=== PATIENT | male | born 1970 | race Caucasian/White ===

== ENCOUNTER 2024-05-20 15:27 | Inpatient (IN) | payer OTHER ==
[~2024-05-20] VITALS: Ht 180.3 cm; Wt 88.1 kg
[2024-05-20 15:54] VITALS: BP 145/79; PULSE 113; RESP 19; TEMP 99.5; O2SAT 96
[2024-05-20] MEDS: NACL 0.9% 1,000 ML IV ONE (16:30)
[2024-05-20 16:47] LABS: BASOPHILS # (AUTO) 0.1 K/uL (0.00-0.22); BASOPHILS % (AUTO) 0.6 % (0.0-2.0); EOSINOPHILS # (AUTO) 0.1 K/uL (0-0.4); EOSINOPHILS % (AUTO) 0.8 % (0.0-4.0); HEMATOCRIT 43.6 % (36-52); HEMOGLOBIN 14.8 g/dL (12.0-18.0); LYMPHOCYTES # (AUTO) 1.2 K/uL (2.0-11.5); LYMPHOCYTES % (AUTO) 7.1 % (20.5-51.1); MEAN CORPUSCULAR HEMOGLOBIN 30 pg (27-31); MEAN CORPUSCULAR HGB CONC 34 g/dL (33-37); MEAN CORPUSCULAR VOLUME 88.2 fL (80-94); MONOCYTES # (AUTO) 1.4 K/uL (0.8-1.0); MONOCYTES % (AUTO) 8.2 % (1.7-9.3); NEUTROPHILS # (AUTO) 14.6 K/uL (1.8-7.7); NEUTROPHILS % (AUTO) 83.3 % (42.2-75.2); PLATELET COUNT (AUTO) 345 K/uL (140-450); RED BLOOD CELL COUNT(AUTO) 4.95 MIL/uL (4.20-6.10); RED CELL DISTRIBUTION WIDTH 13.7 % (11.6-13.7); WHITE BLOOD COUNT (AUTO) 17.5 K/uL (4.8-10.8)
[2024-05-20] MEDS ORDERED: PIPERACILLIN/TAZOBACTAM 3.375 GM VIAL IV ONE (16:50)
[2024-05-20 16:53] LABS: ANION GAP 10.9 (8-16); CALCIUM 9.4 mg/dL (8.5-10.1); CARBON DIOXIDE 29.8 mmol/L (21-32); CREATININE 1.4 mg/dL (0.6-1.3); POTASSIUM 3.7 mmol/L (3.5-5.1)
[2024-05-20] MEDS: MORPHINE SULFATE 4 MG/ML SYR IVP ONE (16:54)
[2024-05-20] MEDS: PIPERACILLIN/TAZOBACTAM 3.375 GM in DEXT 5% MINI-BAG PLUS 50 ML IV ONE (17:00)
[2024-05-20 17:01] LABS: LACTIC ACID 0.9 mmol/L (0.4-2.0)
[2024-05-20] MEDS ORDERED: ASPI-1856 PO (17:04)
[2024-05-20] MEDS ORDERED: CEPH500C16 PO (17:04)
[2024-05-20] MEDS ORDERED: GABA-636 PO (17:04)
[2024-05-20] MEDS ORDERED: SEMA0.258 SUBQ (17:04)
[2024-05-20] MEDS ORDERED: ATOR20TA40 PO (17:04)
[2024-05-20] MEDS ORDERED: CHOL200072 PO (17:04)
[2024-05-20] MEDS ORDERED: LOSA100T52 PO (17:04)
[2024-05-20] MEDS ORDERED: MAG SULF 2000 MG/WATER PREMIX 50 ML IV PRN (18:40)
[2024-05-20] MEDS ORDERED: KCL 20 MEQ IN 100 mL PREMIX 200 ML IV PRN (18:40)
[2024-05-20] MEDS ORDERED: POTASSIUM CHLORIDE 10 MEQ TABER PO PRN (18:40)
[2024-05-20] MEDS ORDERED: VANCOMYCIN PER PHARMACY MC PRN (18:40)
[2024-05-20] MEDS ORDERED: INSULIN LISPRO SLIDING SCALE 100 UNITS/ML VIAL SUBQ PRN (18:45)
[2024-05-20] MEDS: VANCOMYCIN 1,000 MG in NACL 0.9% 250 ML IV SCH (20:15)
[2024-05-20] MEDS: MORPHINE SULFATE 4 MG/ML SYR IVP PRN (20:33)
[2024-05-20 20:50] VITALS: BP 130/87; PULSE 104; RESP 16; TEMP 98.9; O2SAT 100; O2SAT 96
[2024-05-20] MEDS: BLOOD GLUCOSE MONITORING 1 DEV DEV FS SCH (21:00)
[2024-05-21 04:00] VITALS: BP 122/76; PULSE 99; RESP 16; TEMP 98.9; O2SAT 100
[2024-05-21 05:34] LABS: BASOPHILS # (AUTO) 0.1 K/uL (0.00-0.22); BASOPHILS % (AUTO) 0.5 % (0.0-2.0); EOSINOPHILS # (AUTO) 0.3 K/uL (0-0.4); EOSINOPHILS % (AUTO) 2.6 % (0.0-4.0); HEMATOCRIT 38.9 % (36-52); HEMOGLOBIN 13.1 g/dL (12.0-18.0); LYMPHOCYTES # (AUTO) 1.7 K/uL (2.0-11.5); LYMPHOCYTES % (AUTO) 12.6 % (20.5-51.1); MEAN CORPUSCULAR HEMOGLOBIN 30 pg (27-31); MEAN CORPUSCULAR HGB CONC 34 g/dL (33-37); MEAN CORPUSCULAR VOLUME 88.3 fL (80-94); MONOCYTES # (AUTO) 1.4 K/uL (0.8-1.0); MONOCYTES % (AUTO) 10.2 % (1.7-9.3); NEUTROPHILS # (AUTO) 9.9 K/uL (1.8-7.7); NEUTROPHILS % (AUTO) 74.1 % (42.2-75.2); PLATELET COUNT (AUTO) 276 K/uL (140-450); RED BLOOD CELL COUNT(AUTO) 4.41 MIL/uL (4.20-6.10); WHITE BLOOD COUNT (AUTO) 13.3 K/uL (4.8-10.8)
[2024-05-21 06:10] LABS: ALBUMIN 2.2 g/dL (3.4-5.0); CALCIUM 8.5 mg/dL (8.5-10.1); CARBON DIOXIDE 25.8 mmol/L (21-32); CREATININE 1.2 mg/dL (0.6-1.3); MAGNESIUM 1.8 mg/dL (1.8-2.4); POTASSIUM 3.8 mmol/L (3.5-5.1); TOTAL BILIRUBIN 0.6 mg/dL (0.0-1.0); TOTAL PROTEIN, SERUM 6.3 g/dL (6.4-8.2)
[2024-05-21 08:00] VITALS: BP 116/73; PULSE 92; RESP 19; TEMP 97.2; O2SAT 97
[2024-05-21] MEDS: DOCUSATE SODIUM 100 MG GELCAP PO SCH (09:34)
[2024-05-21] MEDS: VANCOMYCIN 1,000 MG in NACL 0.9% 250 ML IV SCH (09:35)
[2024-05-21] MEDS: BLOOD GLUCOSE MONITORING 1 DEV DEV FS SCH (12:15)
[2024-05-21] MEDS ORDERED: GAUZE TP PRN (15:35)
[2024-05-21 16:00] VITALS: BP 146/71; PULSE 72; RESP 18; TEMP 99.2; O2SAT 98
[2024-05-21] MEDS: INSULIN LISPRO SLIDING SCALE 100 UNITS/ML VIAL SUBQ PRN (17:03)
[2024-05-21] MEDS: HYDROcodone/APAP 5/325 MG 1 TAB TAB PO PRN (17:17)
[2024-05-21 20:00] VITALS: BP 118/75; PULSE 94; RESP 18; TEMP 97.4; O2SAT 95
[2024-05-22 04:00] VITALS: BP 145/86; PULSE 96; RESP 18; TEMP 98.4; O2SAT 96
[2024-05-22 05:00] LABS: BASOPHILS # (AUTO) 0.1 K/uL (0.00-0.22); BASOPHILS % (AUTO) 0.5 % (0.0-2.0); EOSINOPHILS # (AUTO) 0.6 K/uL (0-0.4); EOSINOPHILS % (AUTO) 5.1 % (0.0-4.0); HEMATOCRIT 37.8 % (36-52); HEMOGLOBIN 12.9 g/dL (12.0-18.0); LYMPHOCYTES # (AUTO) 1.9 K/uL (2.0-11.5); LYMPHOCYTES % (AUTO) 15.7 % (20.5-51.1); MEAN CORPUSCULAR HEMOGLOBIN 30 pg (27-31); MEAN CORPUSCULAR HGB CONC 34 g/dL (33-37); MEAN CORPUSCULAR VOLUME 87.6 fL (80-94); MONOCYTES # (AUTO) 1.2 K/uL (0.8-1.0); MONOCYTES % (AUTO) 9.8 % (1.7-9.3); NEUTROPHILS # (AUTO) 8.4 K/uL (1.8-7.7); NEUTROPHILS % (AUTO) 68.9 % (42.2-75.2); PLATELET COUNT (AUTO) 273 K/uL (140-450); RED BLOOD CELL COUNT(AUTO) 4.32 MIL/uL (4.20-6.10); RED CELL DISTRIBUTION WIDTH 13.5 % (11.6-13.7); WHITE BLOOD COUNT (AUTO) 12.1 K/uL (4.8-10.8)
[2024-05-22 05:25] LABS: ALBUMIN 2.2 g/dL (3.4-5.0); ANION GAP 9.3 (8-16); CALCIUM 8.5 mg/dL (8.5-10.1); CARBON DIOXIDE 27.6 mmol/L (21-32); MAGNESIUM 1.7 mg/dL (1.8-2.4); POTASSIUM 3.9 mmol/L (3.5-5.1); TOTAL BILIRUBIN 0.5 mg/dL (0.0-1.0); TOTAL PROTEIN, SERUM 6.4 g/dL (6.4-8.2)
[2024-05-22 08:00] VITALS: BP 140/82; PULSE 91; RESP 18; TEMP 97.2; O2SAT 95
[2024-05-22 12:00] VITALS: BP 139/90; PULSE 93; RESP 20; TEMP 98.6; O2SAT 97
[2024-05-22] MEDS: GAUZE TP SCH (12:32)
[2024-05-22] MEDS: MAGNESIUM OXIDE 400 MG TAB PO PRN (15:52)
[2024-05-22 16:00] VITALS: BP 151/69; PULSE 95; RESP 20; TEMP 97.6; O2SAT 98
[2024-05-22 20:00] VITALS: BP 139/67; PULSE 101; RESP 19; TEMP 98; O2SAT 95
[2024-05-23 04:00] VITALS: BP 151/86; PULSE 98; RESP 18; TEMP 97.1; O2SAT 97
[2024-05-23 08:00] VITALS: BP 145/85; PULSE 101; PULSE 95; PULSE 97; RESP 19; RESP 20; TEMP 99.3; O2SAT 95; O2SAT 97
[2024-05-23 08:06] LABS: BASOPHILS # (AUTO) 0.1 K/uL (0.00-0.22); EOSINOPHILS # (AUTO) 0.5 K/uL (0-0.4); EOSINOPHILS % (AUTO) 4.5 % (0.0-4.0); HEMATOCRIT 40.9 % (36-52); LYMPHOCYTES # (AUTO) 1.4 K/uL (2.0-11.5); LYMPHOCYTES % (AUTO) 11.6 % (20.5-51.1); MEAN CORPUSCULAR HEMOGLOBIN 30 pg (27-31); MEAN CORPUSCULAR HGB CONC 34 g/dL (33-37); MEAN CORPUSCULAR VOLUME 87.1 fL (80-94); MONOCYTES # (AUTO) 1.1 K/uL (0.8-1.0); MONOCYTES % (AUTO) 9.6 % (1.7-9.3); NEUTROPHILS # (AUTO) 8.6 K/uL (1.8-7.7); NEUTROPHILS % (AUTO) 73.3 % (42.2-75.2); PLATELET COUNT (AUTO) 313 K/uL (140-450); RED BLOOD CELL COUNT(AUTO) 4.69 MIL/uL (4.20-6.10); RED CELL DISTRIBUTION WIDTH 13.5 % (11.6-13.7); WHITE BLOOD COUNT (AUTO) 11.8 K/uL (4.8-10.8)
[2024-05-23 08:28] LABS: ALBUMIN 2.2 g/dL (3.4-5.0); CARBON DIOXIDE 28.5 mmol/L (21-32); CREATININE 1.1 mg/dL (0.6-1.3); MAGNESIUM 1.8 mg/dL (1.8-2.4); POTASSIUM 4.5 mmol/L (3.5-5.1); TOTAL BILIRUBIN 0.5 mg/dL (0.0-1.0); TOTAL PROTEIN, SERUM 6.7 g/dL (6.4-8.2)
[2024-05-23 16:00] VITALS: BP 133/84; PULSE 101; RESP 20; TEMP 100.4; O2SAT 98
[2024-05-23] MEDS: ACETAMINOPHEN 325 MG TAB PO PRN (16:01)
[2024-05-23 20:00] VITALS: PULSE 101
[2024-05-23 20:11] VITALS: PULSE 101; RESP 20; O2SAT 97
[2024-05-23 20:27] VITALS: BP 126/84; PULSE 101; RESP 20; TEMP 98.1; O2SAT 97
[2024-05-24 05:16] LABS: BASOPHILS # (AUTO) 0.1 K/uL (0.00-0.22); BASOPHILS % (AUTO) 0.5 % (0.0-2.0); EOSINOPHILS # (AUTO) 0.5 K/uL (0-0.4); EOSINOPHILS % (AUTO) 3.4 % (0.0-4.0); HEMATOCRIT 40.8 % (36-52); HEMOGLOBIN 13.9 g/dL (12.0-18.0); LYMPHOCYTES # (AUTO) 1.3 K/uL (2.0-11.5); LYMPHOCYTES % (AUTO) 9.8 % (20.5-51.1); MEAN CORPUSCULAR HEMOGLOBIN 30 pg (27-31); MEAN CORPUSCULAR HGB CONC 34 g/dL (33-37); MEAN CORPUSCULAR VOLUME 87.2 fL (80-94); MONOCYTES # (AUTO) 1.3 K/uL (0.8-1.0); MONOCYTES % (AUTO) 9.8 % (1.7-9.3); NEUTROPHILS # (AUTO) 10.3 K/uL (1.8-7.7); NEUTROPHILS % (AUTO) 76.5 % (42.2-75.2); PLATELET COUNT (AUTO) 354 K/uL (140-450); RED BLOOD CELL COUNT(AUTO) 4.68 MIL/uL (4.20-6.10); RED CELL DISTRIBUTION WIDTH 13.6 % (11.6-13.7); WHITE BLOOD COUNT (AUTO) 13.4 K/uL (4.8-10.8)
[2024-05-24 05:50] VITALS: BP 142/108; PULSE 109; RESP 20; TEMP 97.2; O2SAT 95
[2024-05-24 07:39] LABS: ALBUMIN 2.4 g/dL (3.4-5.0); ANION GAP 13.2 (8-16); CALCIUM 9.2 mg/dL (8.5-10.1); CARBON DIOXIDE 25.3 mmol/L (21-32); CREATININE 1.1 mg/dL (0.6-1.3); MAGNESIUM 1.8 mg/dL (1.8-2.4); POTASSIUM 4.5 mmol/L (3.5-5.1); TOTAL BILIRUBIN 0.7 mg/dL (0.0-1.0)
[2024-05-24 08:00] VITALS: PULSE 74; RESP 19; O2SAT 94
[2024-05-24] MEDS ORDERED: BENZONATATE 100 MG CAPLF PO PRN (10:20)
[2024-05-24 16:00] VITALS: BP 132/63; PULSE 60; RESP 19; TEMP 98.9; O2SAT 96
[2024-05-24 20:00] VITALS: PULSE 89; RESP 18; O2SAT 98
[2024-05-24 20:01] VITALS: BP 124/62; PULSE 89; RESP 16; TEMP 99.4; O2SAT 98
[2024-05-24 21:55] VITALS: BP 130/64; PULSE 107; RESP 16; TEMP 100.7; O2SAT 100
[2024-05-25 08:00] VITALS: BP 136/87; PULSE 100; RESP 20; TEMP 98.3; O2SAT 98
[2024-05-25 08:33] LABS: BASOPHILS # (AUTO) 0.1 K/uL (0.00-0.22); BASOPHILS % (AUTO) 0.6 % (0.0-2.0); EOSINOPHILS # (AUTO) 0.2 K/uL (0-0.4); EOSINOPHILS % (AUTO) 1.9 % (0.0-4.0); HEMATOCRIT 39.9 % (36-52); HEMOGLOBIN 13.5 g/dL (12.0-18.0); LYMPHOCYTES # (AUTO) 0.9 K/uL (2.0-11.5); LYMPHOCYTES % (AUTO) 6.4 % (20.5-51.1); MEAN CORPUSCULAR HEMOGLOBIN 30 pg (27-31); MEAN CORPUSCULAR HGB CONC 34 g/dL (33-37); MEAN CORPUSCULAR VOLUME 87.6 fL (80-94); MONOCYTES # (AUTO) 1.1 K/uL (0.8-1.0); NEUTROPHILS % (AUTO) 83.1 % (42.2-75.2); PLATELET COUNT (AUTO) 338 K/uL (140-450); RED BLOOD CELL COUNT(AUTO) 4.55 MIL/uL (4.20-6.10); RED CELL DISTRIBUTION WIDTH 13.7 % (11.6-13.7); WHITE BLOOD COUNT (AUTO) 13.3 K/uL (4.8-10.8)
[2024-05-25 08:54] LABS: ALBUMIN 2.2 g/dL (3.4-5.0); ANION GAP 9.2 (8-16); CARBON DIOXIDE 28.3 mmol/L (21-32); CREATININE 1.2 mg/dL (0.6-1.3); MAGNESIUM 1.6 mg/dL (1.8-2.4); POTASSIUM 4.5 mmol/L (3.5-5.1); TOTAL BILIRUBIN 0.8 mg/dL (0.0-1.0)
[2024-05-25 16:00] VITALS: BP 135/86; PULSE 103; RESP 20; TEMP 98; O2SAT 100
[2024-05-25 19:54] VITALS: PULSE 103
[2024-05-25 20:00] VITALS: PULSE 61; RESP 20; O2SAT 97
[2024-05-25] MEDS: ONDANSETRON 4 MG/2 ML VIAL IVP PRN (22:25)
[2024-05-26 04:00] VITALS: BP 128/85; PULSE 99; RESP 19; TEMP 96.8; O2SAT 100
[2024-05-26 08:00] VITALS: BP 154/85; PULSE 100; PULSE 109; RESP 18; RESP 20; TEMP 97.4; O2SAT 98
[2024-05-26 10:22] LABS: ANION GAP 11.7 (8-16); CALCIUM 8.9 mg/dL (8.5-10.1); CARBON DIOXIDE 28.8 mmol/L (21-32); CREATININE 1.4 mg/dL (0.6-1.3); POTASSIUM 4.5 mmol/L (3.5-5.1)
[2024-05-26 10:34] LABS: BASOPHILS # (AUTO) 0.1 K/uL (0.00-0.22); BASOPHILS % (AUTO) 0.5 % (0.0-2.0); EOSINOPHILS # (AUTO) 0.1 K/uL (0-0.4); EOSINOPHILS % (AUTO) 0.4 % (0.0-4.0); HEMATOCRIT 41.1 % (36-52); HEMOGLOBIN 13.8 g/dL (12.0-18.0); LYMPHOCYTES # (AUTO) 0.7 K/uL (2.0-11.5); LYMPHOCYTES % (AUTO) 4.8 % (20.5-51.1); MEAN CORPUSCULAR HEMOGLOBIN 30 pg (27-31); MEAN CORPUSCULAR HGB CONC 34 g/dL (33-37); MONOCYTES % (AUTO) 6.7 % (1.7-9.3); NEUTROPHILS % (AUTO) 87.6 % (42.2-75.2); PLATELET COUNT (AUTO) 358 K/uL (140-450); RED BLOOD CELL COUNT(AUTO) 4.68 MIL/uL (4.20-6.10); RED CELL DISTRIBUTION WIDTH 13.9 % (11.6-13.7); WHITE BLOOD COUNT (AUTO) 14.8 K/uL (4.8-10.8)
[2024-05-26 16:00] VITALS: BP 140/83; PULSE 111; RESP 18; TEMP 98.8; O2SAT 97
[2024-05-26 20:00] VITALS: PULSE 110; PULSE 88; RESP 19; O2SAT 97
[2024-05-27 04:00] VITALS: BP 133/89; PULSE 88; RESP 19; TEMP 98.6; O2SAT 96
[2024-05-27 08:00] VITALS: BP 127/82; PULSE 107; PULSE 85; PULSE 96; RESP 18; TEMP 98.4; O2SAT 98
[2024-05-27 10:30] LABS: BASOPHILS % (AUTO) 0.3 % (0.0-2.0); EOSINOPHILS # (AUTO) 0.1 K/uL (0-0.4); EOSINOPHILS % (AUTO) 0.6 % (0.0-4.0); HEMATOCRIT 36.6 % (36-52); HEMOGLOBIN 12.2 g/dL (12.0-18.0); LYMPHOCYTES # (AUTO) 0.9 K/uL (2.0-11.5); LYMPHOCYTES % (AUTO) 6.5 % (20.5-51.1); MEAN CORPUSCULAR HEMOGLOBIN 29 pg (27-31); MEAN CORPUSCULAR HGB CONC 33 g/dL (33-37); MEAN CORPUSCULAR VOLUME 87.7 fL (80-94); MONOCYTES # (AUTO) 1.7 K/uL (0.8-1.0); MONOCYTES % (AUTO) 12.3 % (1.7-9.3); NEUTROPHILS % (AUTO) 80.3 % (42.2-75.2); PLATELET COUNT (AUTO) 315 K/uL (140-450); RED BLOOD CELL COUNT(AUTO) 4.17 MIL/uL (4.20-6.10); RED CELL DISTRIBUTION WIDTH 13.8 % (11.6-13.7); WHITE BLOOD COUNT (AUTO) 13.6 K/uL (4.8-10.8)
[2024-05-27 10:39] LABS: ANION GAP 10.3 (8-16); CALCIUM 8.2 mg/dL (8.5-10.1); CARBON DIOXIDE 28.8 mmol/L (21-32); CREATININE 1.2 mg/dL (0.6-1.3); POTASSIUM 4.1 mmol/L (3.5-5.1)
[2024-05-27 16:00] VITALS: BP 150/84; PULSE 107; RESP 18; TEMP 97.5; O2SAT 97
[2024-05-27 20:00] VITALS: BP 127/80; PULSE 0; PULSE 50; RESP 18; TEMP 98.5; O2SAT 96; O2SAT 97
[2024-05-28 04:00] VITALS: BP 123/66; PULSE 109; RESP 18; TEMP 98.3; O2SAT 97
[2024-05-28 08:00] VITALS: BP 143/105; PULSE 108; RESP 20; TEMP 99.7; O2SAT 100
[2024-05-28] MEDS: MORPHINE SULFATE 4 MG/ML SYR IVP PRN (09:52)
[2024-05-28 10:39] LABS: BASOPHILS # (AUTO) 0.1 K/uL (0.00-0.22); BASOPHILS % (AUTO) 0.5 % (0.0-2.0); EOSINOPHILS # (AUTO) 0.1 K/uL (0-0.4); EOSINOPHILS % (AUTO) 0.5 % (0.0-4.0); HEMATOCRIT 35.5 % (36-52); LYMPHOCYTES # (AUTO) 0.7 K/uL (2.0-11.5); LYMPHOCYTES % (AUTO) 5.3 % (20.5-51.1); MEAN CORPUSCULAR HEMOGLOBIN 29 pg (27-31); MEAN CORPUSCULAR HGB CONC 34 g/dL (33-37); MEAN CORPUSCULAR VOLUME 86.2 fL (80-94); MONOCYTES # (AUTO) 1.4 K/uL (0.8-1.0); MONOCYTES % (AUTO) 10.4 % (1.7-9.3); NEUTROPHILS % (AUTO) 83.3 % (42.2-75.2); PLATELET COUNT (AUTO) 302 K/uL (140-450); RED BLOOD CELL COUNT(AUTO) 4.11 MIL/uL (4.20-6.10); RED CELL DISTRIBUTION WIDTH 13.8 % (11.6-13.7); WHITE BLOOD COUNT (AUTO) 13.1 K/uL (4.8-10.8)
[2024-05-28 10:53] LABS: ANION GAP 12.7 (8-16); CALCIUM 7.9 mg/dL (8.5-10.1); CARBON DIOXIDE 25.3 mmol/L (21-32); CREATININE 1.3 mg/dL (0.6-1.3)
[2024-05-28] MEDS: GAUZE TP SCH (12:18)
[2024-05-28 17:12] VITALS: O2SAT 92
[2024-05-28] MEDS: GABAPENTIN 100 MG CAP PO SCH (17:18)
[2024-05-28 20:00] VITALS: BP 138/85; PULSE 99; RESP 18; RESP 20; TEMP 98.1; O2SAT 100; O2SAT 98
[2024-05-29] MEDS: PIPERACILLIN/TAZOBACTAM 3.375 GM in DEXTROSE 5% 50 ML IV SCH (00:33)
[2024-05-29] MEDS: PIPERACILLIN/TAZOBACTAM 3.375 GM VIAL IV ONE ×2 (00:34→05:39)
[2024-05-29 04:00] VITALS: BP 128/69; PULSE 101; RESP 18; TEMP 98; O2SAT 97
[2024-05-29 08:00] VITALS: BP 126/81; PULSE 94; RESP 20; TEMP 97.1; O2SAT 99
[2024-05-29] MEDS: ATORVASTATIN 20 MG TAB PO SCH (08:41)
[2024-05-29] MEDS: ASPIRIN 81 MG TAB.CHEW PO SCH (08:42)
[2024-05-29 12:10] LABS: BASOPHILS # (AUTO) 0.1 K/uL (0.00-0.22); EOSINOPHILS # (AUTO) 0.1 K/uL (0-0.4); WHITE BLOOD COUNT (AUTO) 15.8 K/uL (4.8-10.8)
[2024-05-29 12:23] LABS: BASOPHILS % (AUTO) 0.4 % (0.0-2.0); EOSINOPHILS % (AUTO) 0.4 % (0.0-4.0); LYMPHOCYTES # (AUTO) 0.9 K/uL (2.0-11.5); LYMPHOCYTES % (AUTO) 5.7 % (20.5-51.1); MEAN CORPUSCULAR HEMOGLOBIN 29 pg (27-31); MEAN CORPUSCULAR HGB CONC 34 g/dL (33-37); MEAN CORPUSCULAR VOLUME 85.9 fL (80-94); MONOCYTES # (AUTO) 0.9 K/uL (0.8-1.0); MONOCYTES % (AUTO) 5.8 % (1.7-9.3); NEUTROPHILS # (AUTO) 13.9 K/uL (1.8-7.7); NEUTROPHILS % (AUTO) 87.7 % (42.2-75.2); PLATELET COUNT (AUTO) 299 K/uL (140-450); RED BLOOD CELL COUNT(AUTO) 4.08 MIL/uL (4.20-6.10); RED CELL DISTRIBUTION WIDTH 13.9 % (11.6-13.7)
[2024-05-29 12:30] LABS: ANION GAP 11.7 (8-16); CALCIUM 8.2 mg/dL (8.5-10.1); CARBON DIOXIDE 27.4 mmol/L (21-32); CREATININE 1.1 mg/dL (0.6-1.3); POTASSIUM 4.1 mmol/L (3.5-5.1)
[2024-05-29 20:00] VITALS: BP 120/67; PULSE 101; PULSE 94; RESP 18; RESP 19; TEMP 99.5; O2SAT 98
[2024-05-30] VITALS: BP 124/74; PULSE 90; RESP 18; TEMP 98.8; O2SAT 97
[2024-05-30 08:00] VITALS: BP 130/81; PULSE 94; RESP 20; TEMP 98.3; O2SAT 98
[2024-05-30 10:56] LABS: HEMOGLOBIN 12.4 g/dL (12.0-18.0); MEAN CORPUSCULAR HEMOGLOBIN 29 pg (27-31); MEAN CORPUSCULAR HGB CONC 34 g/dL (33-37); MEAN CORPUSCULAR VOLUME 86.4 fL (80-94); PLATELET COUNT (AUTO) 334 K/uL (140-450); RED BLOOD CELL COUNT(AUTO) 4.28 MIL/uL (4.20-6.10); RED CELL DISTRIBUTION WIDTH 13.9 % (11.6-13.7); WHITE BLOOD COUNT (AUTO) 16.6 K/uL (4.8-10.8)
[2024-05-30 11:11] LABS: ANION GAP 9.2 (8-16); CALCIUM 8.1 mg/dL (8.5-10.1); CARBON DIOXIDE 29.7 mmol/L (21-32); CREATININE 1.2 mg/dL (0.6-1.3); POTASSIUM 3.9 mmol/L (3.5-5.1)
[2024-05-30 11:12] LABS: EOSINOPHILS % (MANUAL) 3 % (0-4); LYMPHOCYTES % (MANUAL) 11 % (20-46); MONOCYTES % (MANUAL) 8 % (5-12)
[2024-05-30 11:13] LABS: PLATELET ESTIMATE ADEQUATE
[2024-05-30] MEDS ORDERED: ENOXAPARIN 40 MG/0.4 ML SYR SUBQ SCH (15:20)
[2024-05-30 16:00] VITALS: BP 137/84; PULSE 94; RESP 20; TEMP 99.5; O2SAT 97
[2024-05-30 20:00] VITALS: PULSE 94; PULSE 95; RESP 18; O2SAT 96
[2024-05-31] VITALS: BP 123/75; PULSE 95; RESP 18; TEMP 99.6; O2SAT 96
[2024-05-31 08:00] VITALS: BP 124/83; PULSE 91; RESP 18; O2SAT 96
[2024-05-31 10:38] LABS: BASOPHILS # (AUTO) 0.1 K/uL (0.00-0.22); EOSINOPHILS # (AUTO) 0.4 K/uL (0-0.4); LYMPHOCYTES # (AUTO) 1.5 K/uL (2.0-11.5)
[2024-05-31 10:40] LABS: BASOPHILS % (AUTO) 0.7 % (0.0-2.0); EOSINOPHILS % (AUTO) 2.1 % (0.0-4.0); HEMATOCRIT 33.9 % (36-52); HEMOGLOBIN 11.5 g/dL (12.0-18.0); LYMPHOCYTES % (AUTO) 8.5 % (20.5-51.1); MEAN CORPUSCULAR HEMOGLOBIN 29 pg (27-31); MEAN CORPUSCULAR HGB CONC 34 g/dL (33-37); MONOCYTES # (AUTO) 1.6 K/uL (0.8-1.0); MONOCYTES % (AUTO) 9.2 % (1.7-9.3); NEUTROPHILS % (AUTO) 79.5 % (42.2-75.2); PLATELET COUNT (AUTO) 349 K/uL (140-450); RED BLOOD CELL COUNT(AUTO) 3.94 MIL/uL (4.20-6.10); RED CELL DISTRIBUTION WIDTH 13.7 % (11.6-13.7); WHITE BLOOD COUNT (AUTO) 17.5 K/uL (4.8-10.8)
[2024-05-31 10:52] LABS: ANION GAP 10.4 (8-16); CALCIUM 7.9 mg/dL (8.5-10.1); CARBON DIOXIDE 27.6 mmol/L (21-32); CREATININE 1.2 mg/dL (0.6-1.3)
[2024-05-31 11:17] VITALS: O2SAT 96
[2024-05-31] MEDS: LIDOCAINE/EPI 1% 1:100000 20 ML VIAL INJ ONE (16:10)
[2024-05-31] MEDS: BUPIVACAINE-MPF 0.25% 30 ML VIAL INJ ONE (16:10)
[2024-05-31] MEDS: fentaNYL citrate 0.05 MG/ML VIAL ONE (17:20)
[2024-05-31] MEDS: MIDAZOLAM 5 MG/5 ML VIAL ONE (17:20)
[2024-05-31] MEDS: LIDOCAINE 2% 100 MG/5 ML SYR IVP ONE (17:23)
[2024-05-31] MEDS: HYDROGEN PEROXIDE 3% 240 ML BTL TP ONE (17:23)
[2024-05-31] MEDS: PROPOFOL 200 MG/20 ML VIAL IV ONE (17:23)
[2024-05-31] MEDS: METOCLOPRAMIDE 10 MG/2 ML INJ VIAL ONE (17:23)
[2024-05-31] MEDS: HYDROmorphone PFS 2 MG/ML SYR ONE (17:24)
[2024-05-31] MEDS: ePHEDrine 50 MG/ML VIAL ONE (17:25)
[2024-05-31 20:00] VITALS: BP 110/80; PULSE 97; RESP 18; TEMP 97.1; O2SAT 96
[2024-06-01 04:00] VITALS: BP 119/66; PULSE 113; RESP 18; TEMP 98.9; O2SAT 94
[2024-06-01 08:00] VITALS: PULSE 101; RESP 18; O2SAT 96
[2024-06-01 10:53] LABS: BASOPHILS # (AUTO) 0.2 K/uL (0.00-0.22); BASOPHILS % (AUTO) 1.2 % (0.0-2.0); EOSINOPHILS # (AUTO) 0.5 K/uL (0-0.4); EOSINOPHILS % (AUTO) 2.8 % (0.0-4.0); HEMATOCRIT 31.5 % (36-52); HEMOGLOBIN 10.6 g/dL (12.0-18.0); LYMPHOCYTES # (AUTO) 1.6 K/uL (2.0-11.5); LYMPHOCYTES % (AUTO) 8.7 % (20.5-51.1); MEAN CORPUSCULAR HEMOGLOBIN 29 pg (27-31); MEAN CORPUSCULAR HGB CONC 34 g/dL (33-37); MEAN CORPUSCULAR VOLUME 86.6 fL (80-94); MONOCYTES # (AUTO) 1.8 K/uL (0.8-1.0); MONOCYTES % (AUTO) 9.9 % (1.7-9.3); NEUTROPHILS # (AUTO) 13.9 K/uL (1.8-7.7); NEUTROPHILS % (AUTO) 77.4 % (42.2-75.2); PLATELET COUNT (AUTO) 384 K/uL (140-450); RED BLOOD CELL COUNT(AUTO) 3.63 MIL/uL (4.20-6.10); WHITE BLOOD COUNT (AUTO) 17.9 K/uL (4.8-10.8)
[2024-06-01 11:12] LABS: ANION GAP 9.6 (8-16); CALCIUM 7.8 mg/dL (8.5-10.1); CARBON DIOXIDE 28.3 mmol/L (21-32); CREATININE 1.2 mg/dL (0.6-1.3); POTASSIUM 3.9 mmol/L (3.5-5.1)
[2024-06-01 16:00] VITALS: BP 138/82; PULSE 112; RESP 18; TEMP 98.1; O2SAT 95
[2024-06-01] MEDS: HYDROcodone/APAP 10/325 MG 1 TAB TAB PO SCH (18:30)
[2024-06-01] MEDS: HYDROcodone/APAP 10/325 MG 1 TAB TAB ONE (18:34)
[2024-06-01 20:00] VITALS: PULSE 90; RESP 9; O2SAT 98
[2024-06-01] MEDS: GABAPENTIN 100 MG CAP PO SCH (20:24)
[2024-06-01] MEDS ORDERED: metFORMIN 500 MG TAB PO SCH (21:00)
[2024-06-02] VITALS: BP 139/71; PULSE 107; RESP 16; TEMP 98.1; O2SAT 95
[2024-06-02 08:00] VITALS: BP 131/78; PULSE 90; RESP 19; RESP 9; TEMP 96.9; O2SAT 96
[2024-06-02 09:21] LABS: BASOPHILS # (AUTO) 0.1 K/uL (0.00-0.22); BASOPHILS % (AUTO) 0.6 % (0.0-2.0); EOSINOPHILS # (AUTO) 0.8 K/uL (0-0.4); EOSINOPHILS % (AUTO) 4.4 % (0.0-4.0); HEMATOCRIT 29.7 % (36-52); LYMPHOCYTES # (AUTO) 1.6 K/uL (2.0-11.5); LYMPHOCYTES % (AUTO) 8.6 % (20.5-51.1); MEAN CORPUSCULAR HEMOGLOBIN 29 pg (27-31); MEAN CORPUSCULAR HGB CONC 34 g/dL (33-37); MEAN CORPUSCULAR VOLUME 86.7 fL (80-94); MONOCYTES # (AUTO) 1.6 K/uL (0.8-1.0); NEUTROPHILS % (AUTO) 77.4 % (42.2-75.2); PLATELET COUNT (AUTO) 409 K/uL (140-450); RED BLOOD CELL COUNT(AUTO) 3.42 MIL/uL (4.20-6.10); RED CELL DISTRIBUTION WIDTH 13.6 % (11.6-13.7)
[2024-06-02 09:48] LABS: ANION GAP 8.5 (8-16); CALCIUM 7.9 mg/dL (8.5-10.1); CARBON DIOXIDE 29.5 mmol/L (21-32); CREATININE 1.1 mg/dL (0.6-1.3)
[2024-06-02 16:00] VITALS: BP_SYST 114; BP_SYST 135; BP_DIAS 59; BP_DIAS 76; PULSE 100; PULSE 92; RESP 18; TEMP 97.5; TEMP 98.5; O2SAT 96
[2024-06-02 20:00] VITALS: BP 126/76; PULSE 98; RESP 18; RESP 9; TEMP 97.9; O2SAT 96
[2024-06-03 08:00] VITALS: BP 126/76; PULSE 89; PULSE 98; PULSE 99; RESP 20; RESP 9; TEMP 98.7; O2SAT 96; O2SAT 99
[2024-06-03 08:31] LABS: BASOPHILS # (AUTO) 0.1 K/uL (0.00-0.22); BASOPHILS % (AUTO) 0.9 % (0.0-2.0); EOSINOPHILS # (AUTO) 0.7 K/uL (0-0.4); EOSINOPHILS % (AUTO) 4.6 % (0.0-4.0); HEMATOCRIT 32.1 % (36-52); HEMOGLOBIN 10.7 g/dL (12.0-18.0); LYMPHOCYTES # (AUTO) 1.3 K/uL (2.0-11.5); LYMPHOCYTES % (AUTO) 8.8 % (20.5-51.1); MEAN CORPUSCULAR HEMOGLOBIN 29 pg (27-31); MEAN CORPUSCULAR HGB CONC 33 g/dL (33-37); MEAN CORPUSCULAR VOLUME 86.5 fL (80-94); MONOCYTES # (AUTO) 1.3 K/uL (0.8-1.0); MONOCYTES % (AUTO) 8.8 % (1.7-9.3); NEUTROPHILS # (AUTO) 10.9 K/uL (1.8-7.7); NEUTROPHILS % (AUTO) 76.9 % (42.2-75.2); PLATELET COUNT (AUTO) 448 K/uL (140-450); RED BLOOD CELL COUNT(AUTO) 3.71 MIL/uL (4.20-6.10); RED CELL DISTRIBUTION WIDTH 13.8 % (11.6-13.7); WHITE BLOOD COUNT (AUTO) 14.2 K/uL (4.8-10.8)
[2024-06-03 08:43] LABS: ANION GAP 8.4 (8-16); CALCIUM 8.2 mg/dL (8.5-10.1); CARBON DIOXIDE 31.6 mmol/L (21-32); CREATININE 1.1 mg/dL (0.6-1.3)
[2024-06-03 16:00] VITALS: BP 153/99; PULSE 87; RESP 18; TEMP 97.7; O2SAT 97
[2024-06-03 20:00] VITALS: PULSE 89; RESP 9; TEMP 97.1; O2SAT 94
== END 2024-06-03 23:59 | disposition home or self-care (01) | DRG 854 ==
LOC: MED 15:27 → MMU 18:43 → OBSVTOIN 18:43 → MTU 20:36
PROVIDERS: ADMIT Hospitalist; ATTEND Hospitalist
PROC: 0Y9M0ZZ Drainage of Right Foot, Open Approach (ICD-10-PCS; 2024-05-22)
PROC: 0QBN0ZZ Excision of Right Metatarsal, Open Approach (ICD-10-PCS; principal; 2024-05-31 14:30)
PROC: 05HY33Z Insertion of Infusion Device into Upper Vein, Percutaneous Approach (ICD-10-PCS; 2024-06-01)
PROC: B54NZZA Ultrasonography of Left Upper Extremity Veins, Guidance (ICD-10-PCS; 2024-06-01)
DX: A41.9 Sepsis, unspecified organism (principal); E44.1 Mild protein-calorie malnutrition; R64 Cachexia; L03.115 Cellulitis of right lower limb; N17.9 Acute kidney failure, unspecified; M86.8X7 Other osteomyelitis, ankle and foot; E11.69 Type 2 diabetes mellitus with other specified complication; E66.9 Obesity, unspecified; D72.829 Elevated white blood cell count, unspecified; D64.9 Anemia, unspecified; E11.42 Type 2 diabetes mellitus with diabetic polyneuropathy; E11.51 Type 2 diabetes mellitus with diabetic peripheral angiopathy without gangrene; L97.519 Non-pressure chronic ulcer of other part of right foot with unspecified severity; Z79.82 Long term (current) use of aspirin; Z79.899 Other long term (current) drug therapy; Z68.27 Body mass index [BMI] 27.0-27.9, adult
CPT/HCPCS: 36415; 71045; 73630; 73700; 80048; 80053; 80202; 82948; 83036; 83605; 83735; 83880; 84484; 85025; 87040; 87070; 87075; 87081; 87186; 87205; 93005; 96365; 96367; 96375; 97116; 97163-GP; 99285; J0696; J1171; J1644; J1815; J2001; J2003; J2250; J2270; J2405; J2543; J2704; J2765; J3010; J3370; J3490; J7030; J7060; Q0092